=== PATIENT | female | born 1980 | race Caucasian/White ===

== ENCOUNTER 2016-08-18 07:34 | Inpatient (IN) | payer OTHER ==
[~2016-08-18] VITALS: Ht 167.6 cm; Wt 54.4 kg
[~2016-08-18 07:34] MED LIST: ESCI10TA PO; LEVO88TA2 PO
[2016-08-18] MEDS ORDERED: LORAZEPAM 1 MG TABLET PO PRN (09:15)
[2016-08-18] MEDS ORDERED: ACETAMINOPHEN 325 MG TABLET PO PRN (09:15)
[2016-08-18] MEDS ORDERED: THIAMINE HCL 200 MG/2 ML VIAL IM ONE (09:15)
[2016-08-18] MEDS ORDERED: CLONIDINE HCL 0.1 MG TABLET PO PRN (09:15)
[2016-08-18] MEDS ORDERED: LOPERAMIDE HCL 2 MG CAPSULE PO PRN ×2 (09:15)
[2016-08-18] MEDS ORDERED: MAGNESIUM HYDROXIDE 30 ML LIQUID UDC PO PRN (09:15)
[2016-08-18] MEDS ORDERED: diphenhydrAMINE 50 MG CAPSULE PO PRN (09:15)
[2016-08-18] MEDS ORDERED: DICYCLOMINE HCL 20 MG TABLET PO PRN (09:15)
[2016-08-18] MEDS ORDERED: MAG HYDROX/AL HYDROX/SIMETH 30 ML LIQUID UDC PO PRN (09:15)
[2016-08-18] MEDS ORDERED: MIRALAX 17 GM POWD.PACK PO PRN (09:15)
[2016-08-18] MEDS ORDERED: ONDANSETRON ODT 4 MG TAB.RAPDIS SL PRN (09:15)
[2016-08-18] MEDS ORDERED: ONDANSETRON 4 MG/2 ML VIAL IM PRN (09:15)
[2016-08-18] MEDS ORDERED: LORAZEPAM 2 MG/1 ML VIAL IM PRN (09:15)
[2016-08-18] MEDS ORDERED: IBUPROFEN 400 MG TABLET PO PRN (09:15)
[2016-08-18 09:29] LABS: *URINE HCG, QUAL NEGATIVE (NEGATIVE)
[2016-08-18 09:40] LABS: BASOPHILS % (AUTO) 0.5 % (0.0-2.0); EOSINOPHILS # (AUTO) 0.1 K/uL (0.0-0.7); EOSINOPHILS % (AUTO) 0.6 % (0.0-7.0); HEMATOCRIT 42.9 % (31.2-41.9); HEMOGLOBIN 14.7 g/dL (10.9-14.3); LYMPHOCYTES % (AUTO) 21.1 % (20.5-51.5); MEAN CORPUSCULAR HGB CONC 34 g/dL (32.3-35.6); MEAN CORPUSCULAR VOLUME 90.4 fL (75.5-95.3); MONOCYTES # (AUTO) 0.1 K/uL (2.0-10.0); MONOCYTES % (AUTO) 1.3 % (0.0-11.0); NEUTROPHILS # (AUTO) 7.4 K/uL (1.8-8.9); NEUTROPHILS % (AUTO) 76.5 % (38.5-71.5); PLATELET COUNT (AUTO) 318 K/uL (179-408); RED BLOOD CELL COUNT(AUTO) 4.75 MIL/uL (3.63-4.92); RED CELL DISTRIBUTION WIDTH 13.3 % (12.3-17.7); WHITE BLOOD COUNT (AUTO) 9.6 K/uL (3.8-11.8)
[2016-08-18 09:40] LABS: *AMPHETAMINE, URINE NEGATIVE (NEGATIVE); *BARBITURATE, URINE NEGATIVE (NEGATIVE); *CANNABINOID, URINE NEGATIVE (NEGATIVE); *COCCAINE, URINE NEGATIVE (NEGATIVE); *OPIATE, URINE NEGATIVE (NEGATIVE); *PHENCYCLIDINE SCREEN,URINE NEGATIVE (NEGATIVE)
[2016-08-18 09:59] LABS: ALBUMIN 4.3 g/dL (3.4-5.0); BILIRUBIN,TOTAL 0.3 mg/dL (0.2-1.0); CALCIUM 8.1 mg/dL (8.5-10.1); CREATININE 0.7 mg/dL (0.6-1.3); POTASSIUM 4.2 mmol/L (3.5-5.1); TOTAL PROTEIN, SERUM 8.2 g/dL (6.4-8.2)
[2016-08-18 10:04] LABS: THYROID STIMULATING HORMONE 0.65 mIU/mL (0.358-3.740)
[2016-08-18 10:35] LABS: HIV-1 p24 ANTIGEN NON REACTIVE (NONREACTIVE); HIV-1/2 ANTIBODY NON REACTIVE (NONREACTIVE)
[2016-08-18] MEDS ORDERED: BUPR100T5 PO (11:42)
[2016-08-18 12:00] VITALS: BP 128/94
[2016-08-18] MEDS: ESCITALOPRAM OXALATE 10 MG TABLET PO SCH (13:57)
[2016-08-18] MEDS: buPROPion SR 100 MG TABLET.SA PO SCH (13:57)
[2016-08-18] MEDS: LORAZEPAM 1 MG TABLET PO PRN ×2 (14:21→22:01)
[2016-08-18 16:00] VITALS: BP 116/78
[2016-08-18] MEDS ORDERED: LEVO100T PO (17:03)
[2016-08-18] MEDS: HYDROXYZINE PAMOATE 25 MG CAPSULE PO PRN (17:34)
[2016-08-18 20:00] VITALS: BP 111/82
[2016-08-19] VITALS: BP 120/78
[2016-08-19 04:00] VITALS: BP 105/68
[2016-08-19] MEDS ORDERED: PATIENT MAY USE OWN MED- MD OK PO SCH (07:00)
[2016-08-19 08:00] VITALS: BP 122/94
[2016-08-19] MEDS ORDERED: FOLIC ACID 1 MG TABLET PO SCH (09:00)
[2016-08-19] MEDS ORDERED: THIAMINE HCL 100 MG TABLET PO SCH (09:00)
[2016-08-19] MEDS ORDERED: MULTIVITAMINS,THERAPEUTIC TABLET PO SCH (09:00)
[2016-08-19] MEDS ORDERED: TUBERCULIN,PURIF.PROT.DERIV. 5 TU/0.1 ML TEST ID ONE (09:00)
[2016-08-19] MEDS: ESCITALOPRAM OXALATE 10 MG TABLET PO SCH (09:14)
[2016-08-19] MEDS: buPROPion SR 100 MG TABLET.SA PO SCH (09:14)
[2016-08-19] MEDS: HYDROXYZINE PAMOATE 25 MG CAPSULE PO PRN (12:03)
[2016-08-19 14:12] LABS: HCV AB <0.1 s/co ratio (0.0-0.9); HEPATITIS B CORE AB, IgM Negative (Negative); HEPATITIS B SURFACE AG Negative (Negative)
[2016-08-19] MEDS ORDERED: HYDR-3895 PO (15:45)
== END 2016-08-19 16:15 | disposition home or self-care (01) | DRG 895 ==
LOC: SRC 07:43
PROVIDERS: ADMIT Internal Medicine; ATTEND Internal Medicine
PROC: HZ31ZZZ Individual Counseling for Substance Abuse Treatment, Behavioral (ICD-10-PCS; principal; 2016-08-18)
PROC: HZ2ZZZZ Detoxification Services for Substance Abuse Treatment (ICD-10-PCS; principal; 2016-08-18)
PROC: HZ41ZZZ Group Counseling for Substance Abuse Treatment, Behavioral (ICD-10-PCS; 2016-08-19)
DX: F10.230 Alcohol dependence with withdrawal, uncomplicated (principal); F10.220 Alcohol dependence with intoxication, uncomplicated; Y90.8 Blood alcohol level of 240 mg/100 ml or more; E03.9 Hypothyroidism, unspecified; Z90.49 Acquired absence of other specified parts of digestive tract; Z83.3 Family history of diabetes mellitus; Z81.8 Family history of other mental and behavioral disorders; Z81.1 Family history of alcohol abuse and dependence; F17.210 Nicotine dependence, cigarettes, uncomplicated; Z79.899 Other long term (current) drug therapy; F41.9 Anxiety disorder, unspecified; F53 Mental and behavioral disorders associated with the puerperium, not elsewhere classified
CPT/HCPCS: 36415; 70030-TC; 71010; 80307; 83690; 83735; 84443; 84703; 85025; 86592; 86705; 86803; 87340; 87806; A4663; G6040-TC; J3411; Q0162; Q0163